=== PATIENT | male | born 1990 | race African-American/Black ===

== ENCOUNTER → 2018-12-30 | Outpatient (CLI) | payer OTHER | END | disposition home or self-care (01) | LOC: EEVIPCON 10:49 → RAH 10:49 | PROVIDERS: ATTEND Internal Medicine | DX: S63.621A Sprain of interphalangeal joint of right thumb, initial encounter (principal); X58.XXXA Exposure to other specified factors, initial encounter; Y93.89 Activity, other specified; Y92.89 Other specified places as the place of occurrence of the external cause; Y99.8 Other external cause status | CPT/HCPCS: 73140 ==